=== PATIENT | female | born 2000 | race Caucasian/White ===

== ENCOUNTER 2020-05-20 08:37 | Outpatient (NON) | payer OTHER, BC, SELFPAY ==
[2020-05-20 23:32] LABS: SARS-CoV-2 RNA PCR Negative
== END 2020-05-20 08:38 ==
PROVIDERS: PCP Nurse Practitioner Family; Visit Provider Nurse Practitioner Family
DX: Z20.828 Contact with and (suspected) exposure to other viral communicable diseases (principal); R05 Cough; R53.83 Other fatigue; R06.00 Dyspnea, unspecified; R09.81 Nasal congestion
CPT/HCPCS: 87635; C9803; U0003

== ENCOUNTER → 2021-06-21 10:14 | Outpatient (CLI) | payer BC, SELFPAY ==
[2021-06-21 20:55] LABS: SARS-CoV-2 RNA PCR Positive
== END ==
PROVIDERS: PCP Nurse Practitioner Family; Visit Provider Family Medicine
DX: U07.1 COVID-19 (principal)
CPT/HCPCS: C9803; U0003; U0005

== ENCOUNTER 2022-12-10 13:32 | Emergency (ER) | payer BC, MEDICAID, SELFPAY ==
--- NOTE | 2022-12-10 13:41 | ED.GENADULT ---
HPI - General Adult General Chief complaint: Nausea/Vomiting/Diarrhea Stated complaint: Nausea/Headache/Dizziness Source: patient and RN notes reviewed History of Present Illness HPI narrative: 22-year-old male presents to urgent care with complaints nausea, lightheadedness and fatigue since this past weekend. Patient's visitor states she vomited once yesterday. Patient denies any diarrhea or constipation. Patient does state last menstrual period was 1 month ago. This patient reports feeling sweaty and possibly had chills. Denies any known fevers. Denies any dysuria. Denies any chest pain or shortness of breath. Denies any abdominal pain until palpated and does admit to having some tendernss to the left lower abdominal quadrant. Related Data Home Medications Medication Instructions Recorded Confirmed albuterol sulfate 2.5 mg/3 mL 2.5 mg continuous nebulization Q4H 12/10/22 12/10/22 (0.083 %) solution for nebulization PRN Shortness Of Breath Or Wheezing fluoxetine 40 mg capsule 40 mg PO QPM 12/10/22 12/10/22 Allergies Allergy/AdvReac Type Severity Reaction Status Date / Time No Known Allergies Allergy Verified 12/10/22 14:07 Review of Systems Review of Systems: Pertinent positives and pertinent negatives per HPI. PMFSH Comments At the time of my signature, I reviewed and agree with the nursing past medical, surgical, social, and family history. There is no relevant family history pertinent to the patient complaint. Exam Narrative: GENERAL: This is a well-nourished, well-developed patient, in no apparent distress. HEAD: normocephalic, atraumatic. EYES: Sclera clear/white. Vision is grossly intact. EARS: External ears normal, auditory canals clear and without drainage, TMs normal without perforation. Hearing grossly intact. NOSE: External nose normal with no obvious nasal discharge, nares without redness, no rhinorrhea. THROAT: Mucous membranes moist, posterior pharynx clear. NECK: Neck supple, non-tender without lymphadenopathy, masses or thyromegaly. CARDIOVASCULAR: Regular rate and rhythm without murmurs, gallops, or rubs. RESPIRATORY: Clear to auscultation. Breath sounds equal bilaterally. No wheezes, rales, or rhonchi. GASTROINTESTINAL: Abdomen soft, nondistended. Bowel sounds are active. No hepato-splenomegaly, or palpable masses. No guarding. Mild tenderness to left lower quadrant with palpation SKIN: warm, intact with no suspicious lesions or rash, good texture and turgor. NEURO: awake, alert, and oriented to person, place and time. There were no obvious focal neurologic abnormalities. Course Course Level of Care: Express Care Visit Vital Signs Vital signs: Reviewed Medical Decision Making MDM Narrative Medical decision making narrative: You've been diagnosed with a viral illness that would not require antibiotics at this time. Take the Zofran ODT at home as directed for nausea and get plenty of fluids. If you would like to eat food, you should follow the BRAT diet (bananas, rice, applesauce, and toast, or things of the like). If you develop any new or worsening symptoms, you should go to the emergency dept without hesitation. Follow up with your associate quality engineer in 2-5 days. Differential Diagnosis Differential Diagnosis: UTI, , gastroenteritis Lab Data Lab results reviewed: Yes I reviewed the patient's lab results. Critical Care Time Critical Care Time Critical Care Time: No Discharge Plan Discharge Clinical Impression: Gastroenteritis Patient Disposition: Home, Self-Care Condition: Stable Instructions: Gastroenteritis (DC) Additional Instructions: You've been diagnosed with a viral illness that would not require antibiotics at this time. Take the Zofran ODT at home as directed for nausea and get plenty of fluids. If you would like to eat food, you should follow the BRAT diet (bananas, rice, applesauce, and toast, or things of the like). If you develop any new
[2022-12-10 13:42] VITALS: BP 136/82; PULSE 111; RESP 20; TEMP 37.1; O2SAT 98
== END 2022-12-10 14:33 | disposition home or self-care (01) ==
PROVIDERS: Emergency Provider Nurse Practitioner Family
DX: K52.9 Noninfective gastroenteritis and colitis, unspecified (principal)
CPT/HCPCS: 81003; 81025; 99213; G0463

== ENCOUNTER 2023-01-05 15:36 | Emergency (ER) | payer BC, MEDICAID, SELFPAY ==
[2023-01-05 15:44] VITALS: BP 126/78; PULSE 86; RESP 20; TEMP 36.9; O2SAT 100
--- NOTE | 2023-01-05 15:49 | ED.URI ---
HPI - URI/Sore Throat General Chief Complaint: Upper Respiratory Infection Stated Complaint: Cough/Runny Nose Time Seen by Provider: 01/05/23 15:50 Source: patient, RN notes reviewed and old records reviewed Mode of arrival: ambulatory Limitations: no limitations History of Present Illness HPI Narrative: 22-year-old female who presents to [facility] with complaints of productive cough, greenish mucus, sinus drainage, headache, with some feelings of shortness of breath with activity for the past 5 days. Patient reports that she has been having some sinus congestion and drainage and has vomited from the phlegm. Patient has been using her inhaler and nebulizer for her shortness of breath and cough. Patient reports that she has had COVID twice and since then she has had frequent URI issues and has had several instances of bronchitis. Patient reports that she has been taking some DayQuil and NyQuil and also cough drops. MD elicited complaint: cough and sore throat Pertinent past history: other (bronchitis) Onset (ago): day(s) (5-6 days) Treatments prior to arrival: cold medicine and other (cough drops, inhaler and nebulizer) Related Data Home Medications Medication Instructions Recorded Confirmed albuterol sulfate 2.5 mg/3 mL 2.5 mg continuous nebulization Q4H 12/10/22 12/10/22 (0.083 %) solution for nebulization PRN Shortness Of Breath Or Wheezing fluoxetine 40 mg capsule 40 mg PO QPM 12/10/22 12/10/22 albuterol sulfate 2.5 mg/3 mL mg 01/05/23 (0.083 %) solution for nebulization Allergies Allergy/AdvReac Type Severity Reaction Status Date / Time No Known Allergies Allergy Verified 01/05/23 15:51 Review of Systems Review of Systems: CONSTITUTIONAL: Denies malaise, chills, sweats, or fever. EYES: Denies visual changes, redness, or discharge. ENT: Reports rhinorrhea, congestion, sinus pain, no otalgia and no sore throat. CARDIOVASCULAR: Denies chest pain, palpitations, or edema. RESPIRATORY: Reports cough.? Reports dyspnea, reports wheezing GASTROINTESTINAL: Denies abdominal pain, nausea, vomiting, diarrhea SKIN: Denies rash or itching. MUSCULOSKELETAL: Denies myalgia. NEUROLOGIC: Reports some headache discomfort. All systems reviewed & are unremarkable except as noted in HPI and below PMFSH Past Medical History Medical History (Updated 01/05/23 @ 20:24 by Michelle Pichardo NP) Bronchitis COVID-19 X2 in past Fracture of left ankle and left foot Social History Social History (Updated 01/05/23 @ 16:14 by Michelle Pichardo NP) Smoking status: Current some day smoker Tobacco type: cigarettes Alcohol intake: current Alcohol use details: rare alcohol Substance use: current Substance use type: marijuana Gender identity (if verbalized by the patient): Female Comments At time of signature, agree with nursing past medical, surgical, social and family history. There is no relevant family history pertinent to the presenting complaint Exam Narrative: GENERAL: Well-appearing, well-nourished, and in no acute distress. HEAD: Normocephalic EYES: PERRLA, conjunctivae clear ENT: Nares clear, turbinates edematous and erythematous, clear discharge. Mucous membranes moist. TM pearly rodriges with dull light reflex bilaterally; no tragal tenderness. Oropharynx erythematous without lesions. Tonsils not enlarged and without exudate, no drooling, no hoarseness, no trismus, uvula midline. NECK: Supple. No lymphadenopathy CHEST: Scattered wheezing throughout on auscultation, breath sounds equal.Positive wheezing, no rhonchi, rales, or stridor. No respiratory distress, speaks in full sentences, some dyspnea voiced with exertion and cough. HEART: Regular rate and rhythm. No murmur heard. SKIN: Warm, dry, no rash. NEURO: Alert and oriented x3. PSYCH: Normal mood and affect Course Course Emergency Course: Patient is aware of diagnosis, understands and agrees to treatment p
== END 2023-01-05 16:22 | disposition home or self-care (01) ==
PROVIDERS: Emergency Provider Registered Nurse
DX: J40 Bronchitis, not specified as acute or chronic (principal); F17.210 Nicotine dependence, cigarettes, uncomplicated; Z86.16 Personal history of COVID-19
CPT/HCPCS: 99213; G0463

== ENCOUNTER 2023-01-19 15:25 | Emergency (ER) | payer BC, MEDICAID, SELFPAY | END 2023-01-19 16:00 | disposition home or self-care (01) | PROVIDERS: Emergency Provider Nurse Practitioner Family | DX: H66.90 Otitis media, unspecified, unspecified ear (principal) | CPT/HCPCS: 99213; G0463 ==

== ENCOUNTER 2023-02-23 12:48 | Emergency (ER) | payer BC, MEDICAID, SELFPAY ==
[2023-02-23 12:58] VITALS: BP 127/78; PULSE 91; RESP 16; TEMP 36.6; O2SAT 99
--- NOTE | 2023-02-23 14:06 | ED.EAR ---
HPI - Ear Problem General Chief complaint: Ear Stated complaint: headache into ears Source: patient Mode of arrival: ambulatory Limitations: no limitations History of Present Illness HPI Narrative: Patient presents for evaluation of a headache for the last 3-4 days. Pain is frontal and region in region and radiates to the back of her head. Pain is dull, rated 3 to 4/10 in severity. She denies any photophobia or phonophobia. She has a small amount of pain in her left ear. She indicates she was recently treated for an ear infection with amoxicillin but does not feel like her symptoms ever fully resolved. She denies any hearing loss or drainage from the left ear. She smokes about 2 cigarettes per day. She is using Flonase for symptoms. She also used ibuprofen but that did not help. Related Data Home Medications Medication Instructions Recorded Confirmed albuterol sulfate 2.5 mg/3 mL 2.5 mg continuous nebulization Q4H 12/10/22 12/10/22 (0.083 %) solution for nebulization PRN Shortness Of Breath Or Wheezing albuterol sulfate 2.5 mg/3 mL mg 01/05/23 (0.083 %) solution for nebulization Allergies Allergy/AdvReac Type Severity Reaction Status Date / Time No Known Allergies Allergy Verified 01/05/23 15:51 Review of Systems Review of Systems: CONSTITUTIONAL: Denies fever, chills, or sweats. EYES: Denies visual changes, redness, or discharge. ENT: Reports left-sided ear pain. Denies drainage from the ear or hearing loss. Denies rhinorrhea, congestion, sore throat CARDIOVASCULAR: Denies chest pain, palpitations, or edema. RESPIRATORY: Denies cough or dyspnea. GASTROINTESTINAL: Denies abdominal pain, nausea, vomiting, or diarrhea. GENITOURINARY: Denies dysuria or hematuria. SKIN: Denies rash or itching. MUSCULOSKELETAL: Denies back pain, joint pain, or myalgia. NEUROLOGIC: Reports headache. Denies numbness, dizziness, or weakness. PSYCHIATRIC: Denies anxiety or depression. [facility] Past Medical History Medical History Bronchitis Congestion of left ear COVID-19 X2 in past Fracture of left ankle and left foot Headache Surgical History Surgical History No pertinent past surgical history Family History Family History Mother Family history non-contributory Social History Social History Smoking packs per day: 0.2 Smoking cigarettes per day: 4.0 Smoking status: Current every day smoker Tobacco type: cigarettes Alcohol intake: current Alcohol use details: rare alcohol Substance use: current Substance use type: marijuana Gender identity (if verbalized by the patient): Female Exam Narrative: GENERAL: Well-appearing, well-nourished, and in no acute distress. HEAD: Normocephalic, atraumatic. EYES: PERRLA and EOMI. ENT: Nares clear, no rhinorrhea or epistaxis. Mucous membranes moist. Oropharynx without tonsillar hypertrophy exudate or other lesions. Bilateral TMs pearly rodriges nonbulging. There is a trace amount of middle ear fluid on the left. NECK: Supple. No adenopathy or masses. No carotid bruits or JVD CHEST: Clear to auscultation. No respiratory distress. No wheezes rales or rhonchi HEART: Regular rate and rhythm. No murmur heard. Normal peripheral pulses. ABDOMEN: Soft, nontender, nondistended, normal active bowel sounds. EXTREMITIES: Normal range of motion. No edema. SKIN: Warm, dry, no rash. NEURO: No focal deficits. Alert and oriented x3. PSYCH: Normal mood and affect. Course Course Emergency Course: This is a 22-year-old female who presented for evaluation of headache and left-sided ear pain. Exam is consistent with eustachian tube dysfunction. Recommend continuing to use Flonase. Sudafed may help. Fijoni said for pain as
== END 2023-02-23 14:24 | disposition home or self-care (01) ==
PROVIDERS: Emergency Provider Nurse Practitioner
DX: H69.92 Unspecified Eustachian tube disorder, left ear (principal); G44.209 Tension-type headache, unspecified, not intractable; F17.210 Nicotine dependence, cigarettes, uncomplicated
CPT/HCPCS: 99213; G0463

== ENCOUNTER 2023-08-18 10:51 | Emergency (ER) | payer SELFPAY ==
[2023-08-18 10:58] VITALS: BP 159/82; PULSE 84; RESP 20; TEMP 37.3; O2SAT 100
--- NOTE | 2023-08-18 11:48 | ED.UPPEXIN ---
HPI - Extremity Injury (Upper) General Chief Complaint: Extremity Injury, Upper Stated Complaint: right shoulder pain Time Seen by Provider: 08/18/23 11:39 Source: patient and RN notes reviewed Mode of arrival: ambulatory Limitations: no limitations History of Present Illness HPI narrative: Patient presents today with a right shoulder injury. Yesterday she was fishing and moving a fishing boat around when she injured her shoulder. Denies numbness or tingling in the arm or hand. She does report some weakness to the shoulder. Currently rates her pain 5/10 at rest, which increases with any movement. She has tried heat, ice, and ibuprofen without much relief. Related Data Home Medications Medication Instructions Recorded Confirmed No Home Medications 08/18/23 08/18/23 Allergies Allergy/AdvReac Type Severity Reaction Status Date / Time No Known Allergies Allergy Verified 01/05/23 15:51 Review of Systems Review of Systems: CONSTITUTIONAL: Denies body aches, fever, chills, or sweats. EYES: Denies visual changes, redness, or discharge. ENT: Denies rhinorrhea, congestion, sore throat, or otalgia. CARDIOVASCULAR: Denies chest pain, palpitations, or edema. RESPIRATORY: Denies cough or dyspnea. GASTROINTESTINAL: Denies abdominal pain, nausea, vomiting, or diarrhea. GENITOURINARY: Denies dysuria or hematuria. SKIN: Denies rash, itching, or wounds. MUSCULOSKELETAL: Denies back pain, or myalgia.+ right shoulder injury NEUROLOGIC: Denies headache, numbness, tingling, or weakness. PSYCH: Denies depression or anxiety. [facility] Past Medical History Medical History Bronchitis Congestion of left ear COVID-19 X2 in past Fracture of left ankle and left foot Headache Surgical History Surgical History No pertinent past surgical history Family History Family History Mother Family history non-contributory Social History Social History Smoking packs per day: 0.2 Smoking cigarettes per day: 4.0 Smoking status: Current every day smoker Tobacco type: cigarettes Alcohol intake: current Alcohol use details: rare alcohol Substance use: current Substance use type: marijuana Gender identity (if verbalized by the patient): Female Comments At time of signature, I have reviewed and agree with nursing past medical, surgical, social and family history unless otherwise noted. Please see nursing chart for further information. There is no relevant family history pertinent to the presenting complaint Exam Narrative: GENERAL: Well-appearing, well-nourished, and in no acute distress. HEAD: Normocephalic, atraumatic. EYES: EOMI. No redness or drainage. Conjunctivae normal. ENT: Mucous membranes pink and moist. NECK: Normal AROM. Neck is nontender CHEST: No respiratory distress. EXTREMITIES: Right shoulder: Tenderness anteriorly, laterally. No deformity, edema noted. Patient has limited motion at slightly less than 90? with forward flexion and abduction due to pain. Also pain with minimal internal and external rotation. She did not tolerate completing empty can test. Distal sensation intact. Capillary refill normal. Radial pulse normal. Hand recreation leader equal and strong. SKIN: Warm, dry, no rash. Capillary refill normal. Normal skin turgor. NEURO: No focal deficits. Alert and oriented x3. Gait steady. PSYCH: Normal affect. No signs of depression or anxiety. Course Course Level of Care: Express Care Visit Vital Signs Vital signs: Vital Signs Temperature 99.1 F 08/18/23 10:58 Pulse Rate 84 08/18/23 10:58 Respiratory Rate 20 08/18/23 10:58 Blood Pressure 159/82 H 08/18/23 10:58 Pulse Oximetry 100 08/18/23 10:58 Oxygen Delivery Room Air 03
== END 2023-08-18 11:59 | disposition home or self-care (01) ==
PROVIDERS: Emergency Provider Nurse Practitioner
DX: S49.91XA Unspecified injury of right shoulder and upper arm, initial encounter (principal); X50.3XXA Overexertion from repetitive movements, initial encounter; Z86.16 Personal history of COVID-19; F17.210 Nicotine dependence, cigarettes, uncomplicated
CPT/HCPCS: 99212; A4565; G0463

== ENCOUNTER 2023-12-03 18:05 | Emergency (ER) | payer SELFPAY ==
[2023-12-03 18:11] VITALS: BP 141/85; PULSE 83; RESP 20; TEMP 36.6; O2SAT 100
--- NOTE | 2023-12-03 18:20 | ED.URI ---
HPI - URI/Sore Throat General Chief Complaint: Upper Respiratory Infection Stated Complaint: Cough/Chest Congestion/Sore Thorat Time Seen by Provider: 12/03/23 18:21 Source: patient and RN notes reviewed Mode of arrival: ambulatory Limitations: no limitations History of Present Illness HPI Narrative: 23-year-old female presents concern for cough, chest congestion. She reports several day history of symptoms. Reports history of bronchitis frequently after having had COVID. She has had to use an inhaler and nebulizer in the past she currently does not have albuterol neb solution or an inhaler. She denies fever, body aches, chills, sweats. MD elicited complaint: cough Related Data Allergies Allergy/AdvReac Type Severity Reaction Status Date / Time No Known Allergies Allergy Verified 12/03/23 18:16 Review of Systems Review of Systems: CONSTITUTIONAL: Denies malaise, chills, sweats, or fever. EYES: Denies visual changes, redness, or discharge. ENT: Denies rhinorrhea, congestion, sinus pain, otalgia. Reports sore throat. CARDIOVASCULAR: Denies chest pain, palpitations, or edema. RESPIRATORY: Reports cough, dyspnea. GASTROINTESTINAL: Denies abdominal pain, nausea, vomiting, diarrhea SKIN: Denies rash or itching. MUSCULOSKELETAL: Denies myalgia. NEUROLOGIC: Denies headache. All systems reviewed & are unremarkable except as noted in HPI and below PMFSH Past Medical History Medical History Bronchitis Congestion of left ear COVID-19 X2 in past Fracture of left ankle and left foot Headache Surgical History Surgical History No pertinent past surgical history Family History Family History Mother Family history non-contributory Social History Social History Smoking packs per day: 0.2 Smoking cigarettes per day: 4.0 Smoking status: Current every day smoker Tobacco type: cigarettes Alcohol intake: current Alcohol use details: rare alcohol Substance use: current Substance use type: marijuana Gender identity (if verbalized by the patient): Female Comments At time of signature, agree with nursing past medical, surgical, social and family history. There is no relevant family history pertinent to the presenting complaint Exam Narrative: GENERAL: Well-appearing, well-nourished, and in no acute distress. HEAD: Normocephalic EYES: PERRLA, conjunctivae clear ENT: Nares clear. Mucous membranes moist. TM pearly rodriges with dull light reflex bilaterally; no tragal tenderness. Oropharynx not erythematous without lesions. Tonsils not enlarged and without exudate, no drooling, no hoarseness, no trismus, uvula midline. NECK: Supple. No lymphadenopathy CHEST: Mild scattered inspiratory wheeze, otherwise Clear to auscultation, breath sounds equal. No rhonchi, rales, or stridor. No respiratory distress, speaks in full sentences. HEART: Regular rate and rhythm. No murmur heard. SKIN: Warm, dry, no rash. NEURO: Alert and oriented x3. PSYCH: Normal mood and affect Course Course Emergency Course: Patient is aware of diagnosis, understands and agrees to treatment plan. Anticipatory guidance given. Patient agrees to follow-up as directed and is aware of reasons to seek care at the emergency department. Portions of this record may have been created with voice recognition software Level of Care: Express Care Visit Vital Signs Vital signs: Vital Signs Temperature 98 F 12/03/23 18:11 Pulse Rate 83 12/03/23 18:11 Respiratory Rate 20 12/03/23 18:11 Blood Pressure 141/85 H 12/03/23 18:11 Pulse Oximetry 100 12/03/23 18:11 Oxygen Delivery Room Air 12/03/23 18:11 Temperature 98 F 12/03/23 18:11 Pulse Rate 83 12/03/23 18:11 Respiratory Rate 20
== END 2023-12-03 18:30 | disposition home or self-care (01) ==
PROVIDERS: Emergency Provider Nurse Practitioner
DX: J40 Bronchitis, not specified as acute or chronic (principal); F17.210 Nicotine dependence, cigarettes, uncomplicated; Z86.16 Personal history of COVID-19
CPT/HCPCS: 99213; G0463

== ENCOUNTER 2024-04-04 19:40 | Emergency (ER) | payer OTHER, SELFPAY ==
[2024-04-04 19:45] VITALS: BP 125/77; PULSE 77; RESP 18; TEMP 36.8; O2SAT 97
--- NOTE | 2024-04-04 20:04 | ED.GENADULT ---
HPI - General Adult General Chief complaint: Upper Respiratory Infection Stated complaint: poss bronchitis Source: patient Mode of arrival: ambulatory Limitations: no limitations History of Present Illness HPI narrative: Patient presents for evaluation of a cough for the last 4 days. She indicates she has history of recurrent bronchitis following COVID several years ago. She is typically treated with prednisone and albuterol nebs. She has a neb machine but no solution. She has been taking Mucinex which has not been helping. She reports chills but denies fever, nausea, vomiting or otalgia. She hears a crackling noise in her ears and also feels mucus in (her) chest . She smokes cannabis but denies cigarette use. Related Data Allergies Allergy/AdvReac Type Severity Reaction Status Date / Time No Known Allergies Allergy Verified 12/03/23 18:16 Review of Systems Review of Systems: CONSTITUTIONAL: Reports chills. Denies fever or sweats. EYES: Denies visual changes, redness, or discharge. ENT: Reports a crackling sound in her ears. Denies rhinorrhea, congestion, sore throat, or otalgia. CARDIOVASCULAR: Denies chest pain, palpitations, or edema. RESPIRATORY: Reports cough and sensation of sputum in the chest. Reports wheezing GASTROINTESTINAL: Denies abdominal pain, nausea, vomiting, or diarrhea. GENITOURINARY: Denies dysuria or hematuria. SKIN: Denies rash or itching. MUSCULOSKELETAL: Denies back pain, joint pain, or myalgia. NEUROLOGIC: Denies headache, numbness, dizziness, or weakness. PSYCHIATRIC: Denies anxiety or depression. REPLACED BY [facility] Past Medical History Medical History Bronchitis Congestion of left ear COVID-19 X2 in past Fracture of left ankle and left foot Headache Surgical History Surgical History No pertinent past surgical history Family History Family History Mother Family history non-contributory Social History Social History Smoking packs per day: 0.2 Smoking cigarettes per day: 4.0 Smoking status: Former smoker Tobacco type: cigarettes Alcohol intake: current Alcohol use details: rare alcohol Substance use: current Substance use type: marijuana Gender identity (if verbalized by the patient): Female Exam Narrative: GENERAL: Well-appearing, well-nourished, and in no acute distress. HEAD: Normocephalic, atraumatic. EYES: PERRLA and EOMI. ENT: Nares clear, no rhinorrhea or epistaxis. Mucous membranes moist. Oropharynx without tonsillar hypertrophy exudate or other lesions. Bilateral TMs pearly rodriges nonbulging NECK: Supple. No adenopathy or masses. No carotid bruits or JVD CHEST: Diffuse inspiratory and expiratory wheezing. Cough present on exam. HEART: Regular rate and rhythm. No murmur heard. Normal peripheral pulses. ABDOMEN: Soft, nontender, nondistended, normal active bowel sounds. EXTREMITIES: Normal range of motion. No edema. SKIN: Warm, dry, no rash. NEURO: No focal deficits. Alert and oriented x3. PSYCH: Normal mood and affect. Course Course Emergency Course: This is a 23-year-old female who presented for evaluation of respiratory symptoms. She had diffuse inspiratory and expiratory wheezing. I recommended chest x-ray. We were having delays in getting x-ray readings. She requested to forego imaging as she did not want to wait for results. Through shared decision making opted to proceed with antibiotic therapy for community-acquired pneumonia. She appears well clinically. Her saturations are normal. Will discharge also with prednisone and albuterol neb solution. She should follow-up with her primary care provider. Advised on smoking cessation. Go to the ER for worsening symptoms. Patient in agreement with
== END 2024-04-04 20:10 | disposition home or self-care (01) ==
PROVIDERS: Emergency Provider Nurse Practitioner
DX: J18.9 Pneumonia, unspecified organism (principal); Z87.891 Personal history of nicotine dependence; F12.90 Cannabis use, unspecified, uncomplicated; Z86.16 Personal history of COVID-19
CPT/HCPCS: 99213; G0463

== ENCOUNTER 2024-05-19 15:27 | Emergency (ER) | payer OTHER, SELFPAY ==
[2024-05-19 15:30] VITALS: BP 149/93; PULSE 97; RESP 16; TEMP 36.4; O2SAT 99
--- NOTE | 2024-05-19 15:37 | ED.URI ---
HPI - URI/Sore Throat General Chief Complaint: Upper Respiratory Infection Stated Complaint: wheezing/throat/abdo cramps Time Seen by Provider: 05/19/24 15:37 Source: patient and RN notes reviewed Mode of arrival: ambulatory Limitations: no limitations History of Present Illness HPI Narrative: 23-year-old female presents with concern for wheezing, scratchy throat, cough, abdominal cramping 3 days. Reports history of bronchitis. She has a nebulizer at home that she issues past which she is of solution. MD elicited complaint: cough and sore throat Related Data Allergies Allergy/AdvReac Type Severity Reaction Status Date / Time No Known Allergies Allergy Verified 12/03/23 18:16 Review of Systems Review of Systems: CONSTITUTIONAL: Denies malaise, chills, sweats, or fever. EYES: Denies visual changes, redness, or discharge. ENT: Denies rhinorrhea, congestion, sinus pain, otalgia. Reports scratchy throat. CARDIOVASCULAR: Denies chest pain, palpitations, or edema. RESPIRATORY: Reports cough and wheezing. Denies dyspnea. GASTROINTESTINAL: Denies abdominal pain, nausea, vomiting, diarrhea. Reports stomach cramping SKIN: Denies rash or itching. MUSCULOSKELETAL: Denies myalgia. NEUROLOGIC: Denies headache. All systems reviewed & are unremarkable except as noted in HPI and below PMFSH Past Medical History Medical History Bronchitis Congestion of left ear COVID-19 X2 in past Fracture of left ankle and left foot Headache Surgical History Surgical History No pertinent past surgical history Family History Family History Mother Family history non-contributory Social History Social History Smoking packs per day: 0.2 Smoking cigarettes per day: 4.0 Smoking status: Former smoker Tobacco type: cigarettes Alcohol intake: current Alcohol use details: rare alcohol Substance use: current Substance use type: marijuana Gender identity (if verbalized by the patient): Female Comments At time of signature, agree with nursing past medical, surgical, social and family history. There is no relevant family history pertinent to the presenting complaint Exam Narrative: GENERAL: Well-appearing, well-nourished, and in no acute distress. HEAD: Normocephalic EYES: PERRLA, conjunctivae clear ENT: Nares clear, turbinates edematous and erythematous, clear discharge. Mucous membranes moist. TM pearly rodriges with dull light reflex bilaterally; no tragal tenderness. Oropharynx not erythematous without lesions. Tonsils not enlarged and without exudate, no drooling, no hoarseness, no trismus, uvula midline. NECK: Supple. No lymphadenopathy CHEST: Clear to auscultation, breath sounds equal. No wheezing, rhonchi, rales, or stridor. No respiratory distress, speaks in full sentences. HEART: Regular rate and rhythm. No murmur heard. SKIN: Warm, dry, no rash. NEURO: Alert and oriented x3. PSYCH: Normal mood and affect Course Course Emergency Course: Patient is aware of diagnosis, understands and agrees to treatment plan. Anticipatory guidance given. Patient agrees to follow-up as directed and is aware of reasons to seek care at the emergency department. Portions of this record may have been created with voice recognition software Level of Care: Express Care Visit Vital Signs Vital signs: Vital Signs Temperature 97.6 F 05/19/24 15:30 Pulse Rate 97 05/19/24 15:30 Respiratory Rate 16 05/19/24 15:30 Blood Pressure 149/93 H 05/19/24 15:30 Pulse Oximetry 99 05/19/24 15:30 Oxygen Delivery Room Air 05/19/24 15:30 Temperature 97.6 F 05/19/24 15:30 Pulse Rate 97 05/19/24 15:30 Respiratory Rate 16 05/19/24 15:30 Blood Pressure 149/93 H 05/19/24 15:30 Pulse Oximetry 99 05/19/24 15:30 Oxygen Delivery Room Air 05/19/24 15:30 Reviewed. MDM - URI/Sore Throat MDM Narrative Medical decision making narrative: Differential diagnosis considered: [place] virus, strep pharyngitis, allergic rhinitis, upper respiratory tract infection, sinusitis, rhinosinusitis, nasopharyngitis. viral pharyngitis, otitis media, otitis externa, pneumonia, bronchitis, viral cough syndrome, viral syndrome, and influenza. Exam findings show no acute concerns or changes; patient is non-toxic appearing and is in no distress. Patient is appropriate for outpatient treatment and follow-up. Lab Data Attestation: I reviewed the patient's lab results. Critical Care Time Critical Care Time Critical Care Time: No Discharge Plan Discharge Clinical Impression: Lower respiratory tract infection Patient Disposition: Home, Self-Care Condition: Stable Instructions: Antibiotic Form, Acute Cough (ED) Additional Instructions: Take medications as prescribed Recommend antihistamine such as Benadryl at night time and Zyrtec or Denisha during the day Use nebulizer or inhaler as needed for cough, wheezing, shortness of breath or chest tightness. Also, recommend symptomatic treatment includes: rest, fluids, and increase humidity of the air at home. Recommend Acetaminophen as directed on the bottle to reduce fever, pain, headache. Avoid smoking/second-hand smoke. Please schedule a follow-up visit with your personal physician for further evaluation and treatment within 3-5days. Including recheck and discussion of your blood pressure. If your symptoms persist, change or worsen significantly before you can contact your personal physician then please, without delay, go to the emergency department for further evaluation. Prescriptions: New albuterol sulfate 2.5 mg /3 mL (0.083 %) solution for nebulization 2.5 mg inhalation Q4H PRN (Reason: shortness of breath or wheezing) Qty: 75 0RF azithromycin [Zithromax Z-Pradeep] 250 mg tablet See Rx Instructions .ROUTE .COMPLEX Qty: 6 0RF Rx Instructions: take 500 mg today (day 1), then 250 mg for 4 days (days 2-5) prednisone 20 mg tablet 40 mg PO DAILY 5 Days Qty: 10 0RF albuterol sulfate 90 mcg/actuation HFA aerosol inhaler 2 puff INHALATION QID PRN (Reason: shortness of breath or wheezing) Qty: 8.5 0RF No Action albuterol sulfate 2.5 mg /3 mL (0.083 %) solution for nebulization 2.5 mg inhalation Q6H Qty: 90 0RF Follow-up/Referrals: PHYSICIAN NOT ON STAFF,NONSTAFF [Primary Care Provider] - Stand Alone Forms: Work/School Release IP Time of Disposition: 15:43
== END 2024-05-19 15:47 | disposition home or self-care (01) ==
PROVIDERS: Emergency Provider Nurse Practitioner
DX: J22 Unspecified acute lower respiratory infection (principal); Z87.891 Personal history of nicotine dependence
CPT/HCPCS: 99213; G0463

== ENCOUNTER 2024-10-19 11:38 | Emergency (ER) | payer OTHER, SELFPAY ==
--- NOTE | ~2024-10-19 | XR_ITS ---
XR chest 2V Ordering provider: [place] Benitez History: 24 years Female with . wheezing and cough since Friday. . Comparison: None. FINDINGS: MEDIASTINUM: The cardiac silhouette is not enlarged. LUNGS: No infiltrates, effusions or pneumothorax. OTHER: No free air under the diaphragm. IMPRESSION: No acute cardiopulmonary pathology. Reviewed, dictated and finalized at location A.
[2024-10-19 11:48] VITALS: BP 148/82; PULSE 116; RESP 20; TEMP 36.7; O2SAT 99
--- OUTSIDE RECORDS SUMMARY | 2024-10-19 12:17 | XMS_ITS | Clinical Summary ---
Author Organization [facility] Address [address] [place] [address] Care Team Providers Care Medical Recruiter Name Role Phone Rio Browne GEAR FINISHER-CUFF TURNER MACHINE OPERATOR Primary Care Provider Source Comments [facility],non-owned Affiliates and Associated Physician Practices is amultiple site organization consisting of ambulatory clinics and hospital sitesin [place], [place], [place] and [place]. This disclosure is being madepursuant to the Care Everywhere program and may not contain all information available regarding this patient. Last updated 18.[facility] Allergies No known active allergies Medications * Be aware that medications may not be up to date on this document. Alwaysverify current medications with the patient. ibuprofen (MOTRIN) 200 MG tabletIndication s:Left ankle sprain Take by mouth every 6 hours as needed. 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 Gender Identity Not on file Sexual Orientation Not on file Last Filed Vital Signs Vital Sign Reading Time Taken Comments Blood Pressure 143/84 11/29/2018 6:41 PM CDT Pulse 105 11/29/2018 6:41 PM CDT Temperature 36.8 C (98.2 F) 11/29/2018 6:41 PM CDT Respiratory Rate 19 11/29/2018 6:41 PM CDT Oxygen Saturation 100% 11/29/2018 9:32 PM CDT Inhaled Oxygen Concentration - - Weight 104.3 kg (230 lb) 11/29/2018 6:41 PM CDT Height 167.6 cm (5' 6 ) 11/29/2018 6:41 PM CDT Body Mass Index 37.12 11/29/2018 6:41 PM CDT Plan of Treatment Health Maintenance Due Date Last Done Comments HIV SCREENING 2013 HPV VACCINE (1 - 3-dose series) 2013 CHLAMYDIA/GONORRHEA SCREENING 2014 HEPATITIS C SCREENING 10/08/2016 DTAP/TDAP/TD VACCINES (1 - Tdap) 2017 HEPATITIS B VACCINE (1 of 3 - 19+ 3-dose series) 2017 COVID-19 VACCINE (1 - 2023-2 5 season) 2024 DEPRESSION SCREENING 06/16/2024 INFLUENZA VACCINE (Season Ended) 2025 ZOSTER VACCINE (1 of 2) 2048 HIB VACCINE Aged Out No longer eligi ble based on patient's age to complete this topic MENINGOCOCCAL (Group B) VACC INE SHARED DECISION-MAKING Aged Out No longer eligibl e based on patient's age to complete this topic MENINGOCOCCAL GROUPS A/C/Y/W VACCINE Aged Out No longer eligible b ased on patient's age to complete this topic PNEUMOCOCCAL VACCINE Aged Out No long er eligible based on patient's age to complete this topic Insurance [facility] MEDICAID - OUT OF STATE [facility] [employer] [facility] Care Teams Medical Recruiter Relationship Specialty Start Date End Date Rio Browne, GEAR FINISHER-CUFF TURNER MACHINE OPERATOR [address] [place], [place] [phone] PCP - General Nurse Practitioner Family 02/19/17
--- NOTE | 2024-10-19 12:51 | ED_ITS ---
HPI - General Adult General Chief complaint: Upper Respiratory Infection Stated complaint: Right Ear Pain/Chest Congestion Source: patient Mode of arrival: ambulatory Limitations: no limitations History of Present Illness HPI narrative: Patient presents for evaluation of sick symptoms for last 3 days. Symptoms include cough scratchy throat, cough, right-sided ear pain, mild shortness of breath and wheezing. She does not have a formal diagnosis of asthma but has nebulizer machine at home. She currently does not have solution. She has a history of recurrent bronchitis. In the past she has been given steroids, nebulizer treatments, albuterol MDI and azithromycin which seemed to help. She denies any nausea, vomiting or diarrhea. No recent sick contacts to her knowledge. She does smoke marijuana and smokes a few cigarettes per week. Related Data Allergies Allergy/AdvReac Type Severity Reaction Status Date / Time No Known Allergies Allergy Verified 10/19/24 11:54 Review of Systems Review of Systems: CONSTITUTIONAL: Denies fever, chills, or sweats. EYES: Denies visual changes, redness, or discharge. ENT: Reports scratchy throat and right sided ear pain. Denies rhinorrhea CARDIOVASCULAR: Denies chest pain, palpitations, or edema. RESPIRATORY: Reports cough, mild SOB and wheezing GASTROINTESTINAL: Denies abdominal pain, nausea, vomiting, or diarrhea. GENITOURINARY: Denies dysuria or hematuria. SKIN: Denies rash or itching. MUSCULOSKELETAL: Denies back pain, joint pain, or myalgia. NEUROLOGIC: Denies headache, numbness, dizziness, or weakness. PSYCHIATRIC: Denies anxiety or depression. [facility] Past Medical History Medical History Congestion of left ear Headache Fracture of left ankle and left foot COVID-19 X2 in past Bronchitis Surgical History Surgical History No pertinent past surgical history Family History Family History Mother Family history non-contributory Social History Social History Smoking packs per day: 0.2 Smoking cigarettes per day: 4.0 Smoking status: Former smoker Tobacco type: cigarettes Alcohol intake: current Alcohol use details: rare alcohol Substance use: current Substance use type: marijuana Gender identity (if verbalized by the patient): Female Exam Narrative: GENERAL: Well-appearing, well-nourished, and in no acute distress. HEAD: Normocephalic, atraumatic. EYES: PERRLA and EOMI. ENT: Nares clear, no rhinorrhea or epistaxis. Mucous membranes moist. Oropharynx without tonsillar hypertrophy exudate or other lesions. Bilateral TMs pearly rodriges nonbulging NECK: Supple. No adenopathy or masses. No carotid bruits or JVD CHEST: Diffuse inspiratory and expiratory wheezing. Cough present on exam. HEART: Regular rate and rhythm. No murmur heard. Normal peripheral pulses. ABDOMEN: Soft, nontender, nondistended, normal active bowel sounds. EXTREMITIES: Normal range of motion. No edema. SKIN: Warm, dry, no rash. NEURO: No focal deficits. Alert and oriented x3. PSYCH: Normal mood and affect. Course Course Emergency Course: This is a 24-year-old female who presented for evaluation of sick symptoms. COVID, strep, influenza were negative. Chest x-ray negative. She had wheezing on exam so was given steroids and nebulizer treatment. Breathing pattern improved. Discharge with prednisone, albuterol MDI and albuterol neb solution. Also discharge with Augmentin for apparent otitis media. Follow-up with primary provider. Go to the ER for worsening symptoms. Patient in agreement plan of care. Level of Care: Express Care Visit Vital Signs Vital signs: Vital Signs Temperature 36.7 C 10/19/24 11:48 Pulse Rate 116 H 10/19/24 11:48 Respiratory Rate 20 10/19/24 11:48 Blood Pressure 148/82 H 10/19/24 11:48 Pulse Oximetry 99 10/19/24 11:48 Oxygen Delivery Room Air 10/19/24 11:48 Temperature 36.7 C 10/19/24 11:48 Pulse Rate 88 10/19/24 13:18 Respiratory Rate 22 H 10/19/24 13:18 Blood Pressure 148/82 H 10/19/24 11:48 Pulse Oximetry 100 10/19/24 13:18 Oxygen Delivery Room Air 10/19/24 11:48 Medical Decision Making Vital Signs Vital Signs: Vital Signs Temperature 36.7 C 10/19/24 11:48 Pulse Rate 116 H 10/19/24 11:48 Respiratory Rate 20 10/19/24 11:48 Blood Pressure 148/82 H 10/19/24 11:48 Pulse Oximetry 99 10/19/24 11:48 Oxygen Delivery Room Air 10/19/24 11:48 Temperature 36.7 C 10/19/24 11:48 Pulse Rate 88 10/19/24 13:18 Respiratory Rate 22 H 10/19/24 13:18 Blood Pressure 148/82 H 10/19/24 11:48 Pulse Oximetry 100 10/19/24 13:18 Oxygen Delivery Room Air 10/19/24 11:48 Lab Data Labs: Lab Results 10/19/24 10/19/24 Range/Units 13:24 13:27 POC Influenza A Ag Negative (Negative) POC Influenza B Ag Negative (Negative) POC SARS CoV-2 Ag Negative (Negative) POC Grp A Strep Screen Negative (Negative) Imaging Data Radiologist's impression: XR chest 2V Ordering provider: [place] Benitez History: 24 years Female with . wheezing and cough since Friday. . Comparison: None. FINDINGS: MEDIASTINUM: The cardiac silhouette is not enlarged. LUNGS: No infiltrates, effusions or pneumothorax. OTHER: No free air under the diaphragm. IMPRESSION: No acute cardiopulmonary pathology. Discharge Plan Discharge Clinical Impression: Otitis media Patient Disposition: Home Condition: Stable Instructions: Antibiotic Form, Ear Infection (ED) Patient Language: Bangladeshi Prescriptions: New prednisone 50 mg tablet 50 mg PO DAILY Qty: 5 0RF amoxicillin-pot clavulanate 875-125 mg tablet 1 tablet PO Q12H Qty: 20 0RF albuterol sulfate [Ventolin HFA] 90 mcg/actuation HFA aerosol inhaler 2 puff inhalation QID PRN (Reason: shortness of breath or wheezing) Qty: 8.5 0RF albuterol sulfate 2.5 mg/0.5 mL solution for nebulization 5 mg inhalation Q6H PRN (Reason: shortness of breath or wheezing) Qty: 30 0RF No Action albuterol sulfate 2.5 mg /3 mL (0.083 %) solution for nebulization 2.5 mg inhalation Q6H Qty: 90 0RF albuterol sulfate 2.5 mg /3 mL (0.083 %) solution for nebulization 2.5 mg inhalation Q4H PRN (Reason: shortness of breath or wheezing) Qty: 75 0RF albuterol sulfate 90 mcg/actuation HFA aerosol inhaler 2 puff INHALATION QID PRN (Reason: shortness of breath or wheezing) Qty: 8.5 0RF Follow-up/Referrals: Vivek Gibbons MD [Physician] - Time of Disposition: 13:55
[2024-10-19] MEDS: IPRATROPIUM 0.5 MG/ALBUTEROL SULFATE 2.5 MG AMPUL.NEB 3 ML INHALATION (12:59)
[2024-10-19] MEDS: methylPREDNISolone SOD SUCC 125 MG VIAL IM (12:59)
[2024-10-19 13:07] VITALS: PULSE 96; RESP 24; O2SAT 97
[2024-10-19 13:18] VITALS: PULSE 88; RESP 22; O2SAT 100
[2024-10-19 13:25] LABS: EDSTREPNEGPOS1 Negative (Negative)
[2024-10-19 13:29] LABS: EDCOVIDSCREEN Negative (Negative); EDINFLUASCREEN Negative (Negative); EDINFLUBSCREEN Negative (Negative)
== END 2024-10-19 14:02 | disposition home or self-care (01) ==
PROVIDERS: Emergency Provider Nurse Practitioner
DX: H66.93 Otitis media, unspecified, bilateral (principal); Z20.822 Contact with and (suspected) exposure to COVID-19; Z72.0 Tobacco use; F12.90 Cannabis use, unspecified, uncomplicated; Z86.16 Personal history of COVID-19
CPT/HCPCS: 71046; 87081; 87426; 87804; 87880; 94640; 96372; 99213; G0463; J2919

== ENCOUNTER 2025-01-26 15:09 | Emergency (ER) | payer OTHER, SELFPAY ==
--- OUTSIDE RECORDS SUMMARY | 2025-01-26 15:11 | XMS_ITS | Clinical Summary ---
Author Organization [facility] Address [address] [place] [address] Care Team Providers Care Small Craft Operator Name Role Phone Rio Browne COMBINER-CLINICAL QUALITY ASSURANCE SPECIALIST Primary Care Provider Source Comments [facility],non-owned Affiliates and Associated Physician Practices is amultiple site organization consisting of ambulatory clinics and hospital sitesin [place], [place], [place] and [place]. This disclosure is being madepursuant to the Care Everywhere program and may not contain all information available regarding this patient. 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 Gender Identity Not on file Sexual Orientation [...] 6:41 PM CDT Height 167.6 cm (5' 6) 11/29/2018 6:41 PM CDT Body Mass Index 37.12 11/29/2018 6:41 PM CDT Plan of Treatment Health Maintenance Due Date Last Done Comments HIV SCREENING 2013 HPV VACCINE (1 - 3-dose series) 2013 HEPATITIS C SCREENING 10/08/2016 DTAP/TDAP/TD VACCINES (1 - Tdap) 2017 HEPATITIS B VACCINE (1 of 3 - 19+ 3-dose series) 2017 COVID-19 VACCINE (1 - 2023-2 5 season) 2024 DEPRESSION SCREENING 06/16/2024 INFLUENZA VACCINE (#1) 2025 ZOSTER VACCINE (1 of 2) 2048 [...] patient's age to complete this topic Insurance [facility] [place] [id number] MEDICAID - OUT OF STATE [place] [id number] [employer] [facility] Care Teams Small Craft Operator Relationship Specialty Start Date End Date Rio Browne, COMBINER-CLINICAL QUALITY ASSURANCE SPECIALIST [address] [place], [place] [phone] PCP - General Nurse Practitioner Family 02/19/17
--- NOTE | 2025-01-26 15:12 | ED.BACK ---
HPI - Back Pain/Injury General Chief Complaint: Back Pain/Injury Stated Complaint: back pain Time Seen by Provider: 01/26/25 15:11 Source: patient Mode of arrival: ambulatory Limitations: no limitations History of Present Illness HPI Narrative: Alice is a 24-year-old female patient presenting to the clinic today with complaints of low back pain x1 day. 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 States she is now having some pain radiating down the right leg. Rates her pain 4/10 when sitting and a 9/10 with movement. Pain is sharp in nature. No saddle anesthesia or loss of bowel or bladder. Denies injury to her back in the past. No urinary symptoms. Denies any vaginal discharge or odor. Last bowel movement was this morning and normal for the patient. Last menstrual period was last month and there was no concern for . Has been taking ibuprofen, lidocaine patches, and applying heat to her back. Related Data Allergies Allergy/AdvReac Type Severity Reaction Status Date / Time No Known Allergies Allergy Verified 01/26/25 15:22 Review of Systems Review of Systems: Pertinent positives per HPI. Patient denies any fever, chills, rash, headache, visual changes, dizziness, cough, runny nose, sore throat, shortness of breath, chest pain, palpitations, nausea, vomiting, diarrhea, constipation, abdominal pain, or any urinary issues. [facility] Past Medical History Medical History Congestion of left ear Headache Fracture of left ankle and left foot COVID-19 X2 in past Bronchitis Surgical History Surgical History No pertinent past surgical history Family History Family History Mother Family history non-contributory Social History Social History Smoking packs per day: 0.2 Smoking cigarettes per day: 4.0 Smoking status: Former smoker Tobacco type: cigarettes Alcohol intake: current Alcohol use details: rare alcohol Substance use: current Substance use type: marijuana Gender identity (if verbalized by the patient): Female Comments At the time of my signature, I reviewed and agree with the nursing past medical, surgical, social, and family history. There is no relevant family history pertinent to the patient complaint. Exam Narrative: General: Well-developed, well nourished, in no apparent distress Head: Normocephalic, atraumatic. Cardio: Regular rate and rhythm, s1 and s2 normal, no murmur appreciated. Resp: Clear to auscultation bilaterally, no rhonchi, rales, wheezing or rubs. Musculoskeletal: No deformity, no tenderness to palpation over the cervical or thoracic spine, tender to palpation over the lumbar spine, very cautious flexion and extension range of motion of the spine due to pain, muscle strength strong and equal in BLE. SLT positive at approximately 30? bilaterally, patellar reflexes 2/4 bilaterally, negative foot drop, normal gait and station Course Course Emergency Course: Portions of this record may have been created with voice recognition software. Level of Care: Express Care Visit Vital Signs Vital signs: Vital Signs Temperature 36.8 C 01/26/25 15:15 Pulse Rate 101 H 01/26/25 15:15 Respiratory Rate 20 01/26/25 15:15 Blood Pressure 154/82 H 01/26/25 15:15 Pulse Oximetry 100 01/26/25 15:15 Oxygen Delivery Room Air 01/26/25 15:15 Temperature 36.8 C 01/26/25 15:15 Pulse Rate 101 H 01/26/25 15:15 Respiratory Rate 20 01/26/25 15:15 Blood Pressure 154/82 H 01/26/25 15:15 Pulse Oximetry 100 01/26/25 15:15 Oxygen Delivery Room Air 01/26/25 15:15 Vital signs reviewed MDM - Back Pain/Injury MDM Narrative Medical decision making narrative: At the time of visit patient is resting comfortably on the exam table. Patient appears to be nontoxic. Complaints of low back pain x1 day. 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 States she is now having some pain radiating down the right leg. Rates her pain 4/10 when sitting and a 9/10 with movement. Pain is sharp in nature. No saddle anesthesia or loss of bowel or bladder. Denies injury to her back in the past. No urinary symptoms. Denies any vaginal discharge or odor. Last bowel movement was this morning and normal for the patient. Last menstrual period was last month and there was no concern for . Has been taking ibuprofen, lidocaine patches, and applying heat to her back. On exam patient has tenderness to palpation over the lumbar spine as well as over the paraspinous musculature. Pain radiating into the right lower extremity. Positive bilateral straight leg test at 30?. Neuro exam within normal limits Plan: I suspect patient has low back pain/sciatica. Prescription for Medrol Dosepak and Flexeril was sent to the pharmacy. Supportive measures were discussed with the patient and they voiced understanding discharge instructions and agrees to treatment plan. Return precautions reviewed Differential Diagnosis Differential diagnosis: Likely lumbar radiculopathy, sciatica, strain of lumbar region, renal colic, pyelonephritis, thoracic back pain and other (UTI) Discharge Plan Discharge Clinical Impression: Low back pain Qualifiers: Chronicity: acute Back pain laterality: midline Sciatica presence: with sciatica Sciatica laterality: sciatica of right side Qualified Code(s): M54.41 - Lumbago with sciatica, right side Patient Disposition: Home Condition: Stable Instructions: Antibiotic Form, Sciatica (ED), Acute Low Back Pain (ED), Lower Back Exercises (ED) Additional Instructions: Take any prescription medication only as prescribed-Medrol Dosepak and Flexeril Be mindful of sedation precautions given to you if taking a muscle relaxer. May use heat or ice to the affected area Consider massage or chiropractor adjustment if this was discussed with provider May use blue emu, lidocaine patches, or asper cream to affected area- do not apply heat or ice directly over cream- can cause burn. Complete appropriate back stretching exercises. Follow up with your PCP in 3-5 days if symptom persist. Patient Language: Portuguese Prescriptions: New cyclobenzaprine 10 mg tablet 10 mg PO Q8H PRN (Reason: muscle spasm) 7 Days Qty: 21 0RF methylprednisolone [Medrol (Pradeep)] 4 mg tablets,dose pack See Rx Instructions PO .COMPLEX Qty: 21 0RF Rx Instructions: orally per package directions No Action albuterol sulfate [Ventolin HFA] 90 mcg/actuation HFA aerosol inhaler 2 puff inhalation QID PRN (Reason: shortness of breath or wheezing) Qty: 8.5 0RF Follow-up/Referrals: PHYSICIAN,SCREED OPERATOR [Primary Care Provider] - Stand Alone Forms: Work/School Release IP Time of Disposition: 15:29 Quality NIHSS Nursing Documentation ED NIHSS nursing documentation: reviewed/agree
[2025-01-26 15:15] VITALS: BP 154/82; PULSE 101; RESP 20; TEMP 36.8; O2SAT 100
== END 2025-01-26 15:36 | disposition home or self-care (01) ==
PROVIDERS: Emergency Provider Nurse Practitioner Family
DX: M54.41 Lumbago with sciatica, right side (principal); Z87.891 Personal history of nicotine dependence; F12.90 Cannabis use, unspecified, uncomplicated; Z86.16 Personal history of COVID-19
CPT/HCPCS: 99213; G0463

== ENCOUNTER 2025-02-12 14:50 | Emergency (ER) | payer OTHER, SELFPAY ==
[2025-02-12 14:54] VITALS: BP 131/77; PULSE 105; RESP 16; TEMP 36.2; O2SAT 99
--- NOTE | 2025-02-12 15:19 | ED.URI ---
HPI - URI/Sore Throat General Chief Complaint: Upper Respiratory Infection Stated Complaint: sore throat, sinus, ear prob Time Seen by Provider: 02/12/25 15:20 History of Present Illness HPI Narrative: 4-year-old female presented for complaint of sore throat, hoarse voice, nasal congestion, cough and wheezing. Onset 4 days. Says cough is productive with green sputum. Denies nausea, vomiting, diarrhea, fevers or lethargy.Not taking anything for symptoms. Related Data Allergies Allergy/AdvReac Type Severity Reaction Status Date / Time No Known Allergies Allergy Verified 02/12/25 15:01 Review of Systems Review of Systems: CONSTITUTIONAL: Denies body aches, fever, chills, or sweats. EYES: Denies visual changes, redness, or discharge. ENT: reports sore throat rhinorrhea, congestion, denies otalgia. CARDIOVASCULAR: Denies chest pain, palpitations, or edema. RESPIRATORY: reports cough and wheezing Denies dyspnea. GASTROINTESTINAL: Denies abdominal pain, nausea, vomiting, or diarrhea. SKIN: Denies rash NEUROLOGIC: Denies headache PMFSH Past Medical History Medical History Congestion of left ear Headache Fracture of left ankle and left foot COVID-19 X2 in past Bronchitis Surgical History Surgical History No pertinent past surgical history Family History Family History Mother Family history non-contributory Social History Social History Smoking packs per day: 0.2 Smoking cigarettes per day: 4.0 Smoking status: Former smoker Tobacco type: cigarettes Alcohol intake: current Alcohol use details: rare alcohol Substance use: current Substance use type: marijuana Gender identity (if verbalized by the patient): Female Exam Narrative: GENERAL: well-appearing, no acute distress. EYES: conjunctivae clear ENT: Mucous membranes moist. TMs pearly rodriges with normal light reflex bilaterally; no tragal tenderness. Oropharynx not erythematous without lesions. Tonsils enlarged and without exudate. No drooling, no hoarseness, no trismus, uvula midline. No tripod positioning, hot potato voice, or soft palate swelling. NECK: Supple. No lymphadenopathy CHEST: Lung sounds coarse with scattered wheezing throughout. No respiratory distress, speaks in full sentences. HEART: Regular rate and rhythm. No murmur heard. SKIN: Warm, dry, no rash. NEURO: Alert and oriented x3. Course Course Emergency Course: Patient is aware of diagnosis, understands and agrees to treatment plan. Anticipatory guidance given. Patient agrees to follow-up as directed and is aware of reasons to seek care at the emergency department. Portions of this record may have been created with voice recognition software Level of Care: Express Care Visit Vital Signs Vital signs: Vital Signs Temperature 97.2 F L 02/12/25 14:54 Pulse Rate 105 H 02/12/25 14:54 Respiratory Rate 16 02/12/25 14:54 Blood Pressure 131/77 02/12/25 14:54 Pulse Oximetry 99 02/12/25 14:54 Oxygen Delivery Room Air 02/12/25 14:54 Temperature 97.2 F L 02/12/25 14:54 Pulse Rate 105 H 02/12/25 14:54 Respiratory Rate 16 02/12/25 14:54 Blood Pressure 131/77 02/12/25 14:54 Pulse Oximetry 99 02/12/25 14:54 Oxygen Delivery Room Air 02/12/25 14:54 MDM - URI/Sore Throat MDM Narrative Medical decision making narrative: neg flu, covid, strep result reviewed with pt. Reviewed RX. Requesting refill on Albuterol neb. Advise supportive treatments. Patient is appropriate for outpatient treatment and follow-up. Differential Diagnosis Differential diagnosis: Likely upper respiratory infection, sinusitis, viral infection, bronchitis, influenza and pharyngitis Discharge Plan Discharge Clinical Impression: Bronchitis Patient Disposition: Home Condition: Stable Instructions: Antibiotic Form, Acute Bronchitis (ED) Additional Instructions: Flu and COVID negative. Rapid strep swab was negative today You will be notified in a few days if the culture comes back positive for strep, and appropriate antibiotics will be called in at that time. if symptoms are due to a viral illness, it is not treated with antibiotics. Viral symptoms can be present for up to 10-14 days. Recommendations: Flonase spray and Zyrtec for sinus congestion Cough syrup may cause drowsiness; avoid driving or take it at night time. Tylenol every 8 hours as needed for pain/fever Soft foods, cool liquids, warm tea. Gargle with warm saltwater twice a day. Chloraseptic spray and throat lozenges. Rest and stay hydrated. --Follow up with your PCP --Go to the ER immediately if you cannot swallow your saliva, trouble breathing/wheezing, throat swelling, pain is persistent and severe Patient Language: Upper Sorbian Prescriptions: New prednisone 50 mg tablet 50 mg PO DAILY Qty: 5 0RF amoxicillin-pot clavulanate 875-125 mg tablet 1 tablet PO Q12H 7 Days Qty: 14 0RF albuterol sulfate 2.5 mg /3 mL (0.083 %) solution for nebulization 2.5 mg inhalation Q4H PRN (Reason: shortness of breath or wheezing) Qty: 180 0RF No Action albuterol sulfate [Ventolin HFA] 90 mcg/actuation HFA aerosol inhaler 2 puff inhalation QID PRN (Reason: shortness of breath or wheezing) Qty: 8.5 0RF Follow-up/Referrals: PHYSICIAN,LEAD SOFTWARE ENGINEER [Primary Care Provider, Internal Medicine] Time of Disposition: 15:30
[2025-02-12 15:31] LABS: EDCOVIDSCREEN Negative (Negative); EDINFLUASCREEN Negative (Negative); EDINFLUBSCREEN Negative (Negative); EDSTREPNEGPOS1 Negative (Negative)
== END 2025-02-12 15:36 | disposition home or self-care (01) ==
PROVIDERS: Emergency Provider Nurse Practitioner Family
DX: J40 Bronchitis, not specified as acute or chronic (principal); Z20.822 Contact with and (suspected) exposure to COVID-19; Z87.891 Personal history of nicotine dependence; F12.90 Cannabis use, unspecified, uncomplicated; Z86.16 Personal history of COVID-19
CPT/HCPCS: 87081; 87426; 87804; 87880; 99213; G0463